=== PATIENT | female | born 1990 | race Two or more races ===

== ENCOUNTER 2024-01-24 10:35 | Emergency (ER) | payer OTHER ==
[~2024-01-24] VITALS: Ht 165.1 cm; Wt 70.3 kg
[2024-01-24 10:38] VITALS: TEMP 97.9
--- NOTE | 2024-01-24 10:51 | NUR ---
DR COOPER AT BEDSIDE FOR EVAL.
[2024-01-24] MEDS ORDERED: ALBU18HF2 INH (11:16)
[2024-01-24] MEDS ORDERED: PRED20TA PO (11:16)
--- NOTE | 2024-01-24 11:29 | NUR ---
PT MEDICALLY CLEARED. D/C TO [facility] IN STABLE CONDITION.
[2024-01-24 11:31] VITALS: BP 125/99; O2SAT 98
== END 2024-01-24 11:31 ==
LOC: ER 10:49
DX: R09.89 Other specified symptoms and signs involving the circulatory and respiratory systems (principal); R07.89 Other chest pain; R05.9 Cough, unspecified; R06.02 Shortness of breath; J45.909 Unspecified asthma, uncomplicated
CPT/HCPCS: 71045-TC